=== PATIENT | male | born 1940 | race Caucasian/White ===

== ENCOUNTER 2020-04-29 13:30 | Outpatient (CLI) | payer MEDICARE, SELFPAY ==
--- NOTE | 2020-04-29 14:35 | XR_ITS ---
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 FINDINGS: The L1-L4 bone mineral density measures 0.907. This corresponds to a T score score of -2.8 and Z scor e of -1.7. Left femoral neck bone mineral density measures 0.662. This corresponds to a T score of -3.1 and Z sc ore of -1.8. XR/XR DEXA axial skeleton* [id number] IMPRESSION: Osteoporosis Patient's FRAX calculated 10 year probability for major osteoporotic fracture i s 17.0 % and osteoporotic hip fracture is 7.9%.
== END 2020-04-29 13:31 | disposition home or self-care (01) ==
PROVIDERS: PCP Nurse Practitioner; Visit Provider Nurse Practitioner
DX: M81.0 Age-related osteoporosis without current pathological fracture (principal)
CPT/HCPCS: 77080

== ENCOUNTER → 2023-04-10 14:34 | Outpatient (BNVA) | payer MEDICARE, SELFPAY | PROVIDERS: PCP Family Medicine; Visit Provider Otolaryngology | DX: H61.23 Impacted cerumen, bilateral (principal) | CPT/HCPCS: 69210; 99202 ==

== ENCOUNTER 2023-04-20 12:42 | Outpatient (CLI) | payer MEDICARE, SELFPAY ==
--- NOTE | 2023-04-20 14:16 | XR_ITS ---
WS: [id number] SCREENING DEXA SCAN [place] CLINICAL INFORMATION: AGE RELATED OSTEOPOROSIS W/O CURRENT PATHOLOGICAL FX COMPARISON: 2019 FINDINGS: The L1-L4 bone mineral density measures 0.939 g/cm2. This corresponds to a T score score of -2.3 and Z score of -1.4. Left forearm bone mineral density measures 0.831. This corresponds to a T score of -1.6 and Z score o f -0.4. XR/XR DEXA axial skeleton* [id number] IMPRESSION: Osteopenia lumbar spine. Osteopenia LEFT forearm. Bone mineral density lumbar spine increased 3.6% since 2019 LEFT forearm was not previously measured.
== END 2023-04-20 12:43 | disposition home or self-care (01) ==
PROVIDERS: PCP Family Medicine; Visit Provider Family Medicine
DX: M81.0 Age-related osteoporosis without current pathological fracture (principal); M85.88 Other specified disorders of bone density and structure, other site; M85.832 Other specified disorders of bone density and structure, left forearm
CPT/HCPCS: 77080

== ENCOUNTER 2025-07-23 10:48 | Observation (INO) | payer MEDICARE, SELFPAY ==
--- OUTSIDE RECORDS SUMMARY | 2025-07-22 09:20 | XMS_ITS | Encounter Summary ---
Author Organization [facility] Address [address] [place] [address] Care Team Providers Care Perinatal Technician Name Role Phone Adalberto Quinones MD Primary Care Provider [phone] Reason for Visit * Reason Comments Annual Wellness Visit (Medicare) Encounter Details Date Type Department Care Team (Late st Contact Info) Description 07/22/2025 9:20 AM CDT Office Visit [address] [phone] Annie Cleaning FNP [address] [address] Encounter for subsequent annual wellness visit (AWV) in Medicare patient (Primary Dx); ACP (advance care planning); Refused influenza vaccine; Blood loss anemia Social History Tobacco Use Types Packs/Day Years Used Date Smoking Tobacco: Never Smokeless Tobacco: Never Alcohol Use Standard Drinks/Week Comments Never 0 (1 standard drink = 0.6 oz pur e alcohol) Sex and Gender Information Value Date Recorded Sex Assigned at Not on file Legal Sex 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 Gender Identity Not on file Sexual Orientation Not on file documented as of this encounter Last Filed Vital Signs Vital Sign Reading Time Taken Comments Blood Pressure 128/80 07/22/2025 9:21 AM CDT Pulse 67 07/22/2025 9:21 AM CDT Temperature 36.1 C (97 F) 07/22/2025 9:21 AM CDT Respiratory Rate 16 07/22/2025 9:21 AM CDT Oxygen Saturation 99% 07/22/2025 9:21 AM CDT Inhaled Oxygen Concentration - - Weight 71.4 kg (157 lb 6.4 oz) 07/22/2025 9:21 A M CDT Height 172.7 cm (5' 8 ) 07/22/2025 9:21 AM CDT Body Mass Index 23.93 07/22/2025 9:21 AM CDT documented in this encounter Patient Instructions * Attachments The following attachments cannot be sent through Care Everywhere. * Advance Care Planning (Khmer) documented in this encounter Progress Notes * Annie Cleaning FNP - 07/22/2025 9:25 AM CDT Jaime Stout is a 85 y.o. male here today for his Medicare Annual Wellness Visit. MEDICARE WELLNESS VISIT HEALTH RISK ASSESSMENT Completed by and reviewed with patient/caregiver. See Annual Wellness Visit HRA Flowsheet In general, how would you rate your health?: Good (07/22/[address]) Are you basically satisfied with your life? : Yes (07/22/25931) MEDICAL RECORD REVIEWED AND UPDATED, INCLUDING: Demographics Current providers and suppliers: Patient Care Team: Adalberto Quinones MD as PCP - General (Family Practice) Ivelisse Castro FNP as PCP - Primary Care APP1 (Nurse Practitioner Family) Past Medical and Surgical History Family History Social History Allergies CURRENT MEDICATIONS REVIEWED AND RECONCILED metoprolol tartrate Take 1/2 (one-half) tablet by mouth twice daily (Patient taking differently: Take 12.5 mg by mouth 2 times daily. Taking 1/2 tab daily) aspirin Take 81 mg by mouth daily. CALCIUM CARBONATE-VITAMIN D3 ORAL Take by mouth. [DISCONTINUED] calcium carb,gluc/mag ox,gluc (CALCIUM MAGNESIUM ORAL) Take by mouth. In general, how often do you forget or decide not to take one or more of your medications?: Never (07/22/25931) EXAMINATION(MA may complete) BP 128/80 Pulse 67 Temp 97 ??F (36.1 ??C) (Temporal) Resp 16 Ht 5' 8 (1.727 m) Wt 71.4 kg (157 lb 6.4 oz) SpO2 99% BMI 23.93 kg/m?? Visual Acuity: Hearing: Have you been told by others you turn up your TV volume too high or that you have problems hearing?: Yes (07/22/25931) FUNCTIONAL ABILITY, FRAILTY Have you fallen one or more times in the past year?: No (07/22/25931) Patient denies needing help with any ADL's. Do you currently use any medical equipment, such as a cane, walker, wheelchair, or oxygen tank?: No(07/22/25931) SAFETY AND PHYSICAL ACTIVITY Do you fasten your seat belt when you are in the car?: Yes (07/22/25931) Do you feel safe at home?: Yes (07/22/25931) How many days a week do you do at least 10 - 15 minutes of some type of exercise or physical activity?: 4 or more days (07/22/25931) RISK ASSESSMENT (QM) Depression Screen Positive: PHQ-2 score >= 3 or PHQ-9 score >= 9 PHQ-2 Total: 0 (07/22/2025 9:32 AM) PHQ-9 Total: 2 (07/22/2025 9:32 AM) DEPRESSION PLAN OF CARE His depression screen was negative. (PHQ2 <3, PHQ9 <10, [place] <11) How often do you feel angry? : Sometimes (07/22/25931) How often do you feel lonely?: Never (07/22/25931) Any changes or new problems with your mental or emotional health, such as stress or anxiety?: No (07/22/25931) Opioid Use Current Opioids: none on current medication list Cognitive Impairment Cognitive ability observed and assessed throughout the exam. Structured assessment: not indicated based on this assessment. . PREVENTIVE CARE GUIDELINES Written Screening Schedule for the next 5-10 years developed and provided to patient. Preventive Care Recommendations for AVERAGE Risk Adult Males > 65yo Measure USPSTF Recommendation PSA testing Men 55-69: individual decision based on review of potential benefits and harms. Men >70 not recommended Colon Cancer Screening Colonoscopy every 10 yrs or Fecal Occult Blood testing yearly ages 45-75 Abdominal Aortic Aneurysm Men 65 -75 who have ever smoked. Lung Cancer Screening Annual low-dose CT, adults 50 - 80 w/ >20 pack-year smoking hx who currently smoke or have quit w/in 15 yrs (*Medicare will not cover for >77 yo) Lipid Screening Identification of dyslipidemia and calculation of 10-year CVD event risk requires universal lipid screening in adults ages 40 - 75 Pre-diabetes/Diabetes Screening Adults 35-70 who are overweight or obese Hepatitis C Screening Adults 18-79 Immunizations COVID-19 Influenza - Declined Pneumococcal - UTD RSV - Declined Tdap/Td - Declined Zoster (Shingles) - Declined ADVANCE CARE PLANNING Do you have an Advance Directive (Living Will)?: No (07/22/25931) Advance Care Planning Primary Emergency Contact: Bev Stout, Relation: Spouse Is the person(s) listed above who you would want to be your trusted decision maker? Yes Have you discussed your healthcare wishes with them? yes CODE STATUS Code Status: Full Code Code status was addressed and ordered as FULL CODE Discussed 07/22/2025 with patient. Participation was voluntary, and the nature of Advance Directives was part of the discussion. Next steps : Revisit this discussion if there is a new diagnosis, decline in functional abilities, or hospitalization YUE Gorman Number of minutes spent performing Advance Care Planning : <16 RISK FACTORS AND CONDITIONS FOR WHICH INTERVENTIONS ARE RECOMMENDED AND/OR UNDERWAY Cardiovascular Risk Assessment Cardiovascular risk assessment performed due to predisposing cardiovascular risk factors including advanced age (older than 55 for men, 65 for women), hypertension, male gender, and sedentary lifestyle The ASCVD Risk score (Desiree MELENDEZ, et al., 2019) failed to calculate for the following reasons: The 2019 ASCVD risk score is only valid for ages 40 to 79 Risk score cannot be calculated because patient has a medical history suggesting prior/existing ASCVD Patient counseled regarding his risk and appropriate management interventions. Time Spent <5 minutes. Are you currently on any kind of special diet? : No (07/22/25931) Do you have problems with your teeth or dentures?: Yes (07/22/25931) During the past 4 weeks, would you say you have had...: Very mild pain (07/22/25931) Do you have any concerns about your sexual health?: No (07/22/25931) No new issues identified EDUCATION/COUNSELING/REFERRAL(S) ACP documentation provided for return after completion with decision makers Orders Placed This Encounter POC HEMOGLOBIN Mr. Stout voiced understanding and agreement with the treatment plan. All questions were answered. Tqqjt-[id number]-[id number] provided to patient. ACUTE AND/OR CHRONIC ISSUES REQUIRING EVALUATION AND MANAGEMENT OUTSIDE THE WELLNESS VISIT (Provider only) 1. Encounter for subsequent annual wellness visit (AWV) in Medicare patient (Primary) - FULL CODE 2. Refused influenza vaccine 3. Blood loss anemia Want recheck since mild anemia acquired in the spring with regular blood donation which he paused - POC HEMOGLOBIN 4. ACP (advance care planning) - FULL CODE documented in this encounter Plan of Treatment Not on file documented as of this encounter Procedures Procedure Name Priority Date/Time Associated Diagnosis Comments POC HEMOGLOBIN Routine 07/22/2025 10:09 AM CDT Blood loss anemia documented in this encounter Results * (ABNORMAL) POC HEMOGLOBIN (07/22/2025 10:09 AM CDT) HEMOGLOBIN POC 13.4(A) 14.0 - 18.0 g/dl [facility] INTERNAL KIT QC POC Pass Pass [facility] KIT LOT NUMBER POC [id number] [facility] KIT EXP DATE POC 01-27-2026 [facility] Blood, capillary 07/22/2025 10:09 AM CDT us Annie TURNER POINT OF CARE TESTING Final Re sult [facility] CLIA# [id number] [address] [place] [id number] documented in this encounter Visit Diagnoses Diagnosis Encounter for subsequent annual wellness visit (AWV) in Medicare patient- Primary ACP (advance care planning) Other specified counseling Refused influenza vaccine Vaccination not carried out because of patient refusal Blood loss anemia Iron deficiency anemia secondary to blood loss (chronic) documented in this encounter Care Teams Perinatal Technician Relationship Specialty Start Date End Date Adalberto Quinones MD [address] [phone] PCP - General Family Practice 09/07/23 documented as of this encounter
[2025-07-23] VITALS (9 sets, daily range): BP systolic 111–161; BP diastolic 63–92; PULSE 55–60; RESP 9–18; TEMP 36.4–36.8; O2SAT 96–99
--- NOTE | 2025-07-23 10:55 | ECG_ITS ---
[employer] Test Date: 2025-07-23 Pat Name: Jaime Stout Department: Room: Gender: Male Psychiatric Clinician: : 1940 Requested By: Raymundo Montez Order Number: [id number] Humberto MD: Dipak Duron M.D. Measurements Intervals [place] Rate: 59 P: 47 ME: 182 QRS: 52 QRSD: 82 T: 50 QT: 402 QTc: 399 Interpretive Statements SINUS BRADYCARDIA SEPTAL MYOCARDIAL INFARCTION , OF INDETERMINATE AGE [40+ ms Q WAVE IN V1/V2] INTERPRETATION BASED ON A DEFAULT AGE OF 40 YEARS No previous ECG available for comparison Electronically Signed On 07-25-2025 20:43:25 CDT by Dipak Duron M.D. [email or web address]
--- NOTE | 2025-07-23 10:57 | XR_ITS ---
WS: [id number] Exam: XR chest 1V portable [id number] Date/Time of Exam: 07/23/2025 10:57 AM Reason For Exam: chest pain No priors. Lungs are clear and fully inflated. Normal cardiomediastinal silhouette. No pleural effusions. Unremarkable bony structures. XR/XR chest 1V portable [id number] IMPRESSION: 1. Negative chest.
--- NOTE | 2025-07-23 11:04 | W.ED.CHESTPA ---
HPI - Chest Pain General: Chief Complaint: Chest Pain Stated Complaint: CP Back Pain Time Seen by Provider: 07/23/25 11:01 History of Present Illness: 85-year-old male with history of hypertension and coronary artery disease status post stents several years back who presents to the emergency room with chest discomfort. He said last night he had a central chest pain that radiated into his back. Started as a discomfort and then became a pressure. This morning it is quite a bit better. No cough. No fevers. No nausea or vomiting. No abdominal pain. No altered mental status. No focal motor deficits. Related Data Home Medications ?Medication ?Instructions ?Recorded ?Confirmed metoprolol succinate 50 mg 50 mg PO DAILY 04/10/23 04/10/23 tablet,extended release 24 hr Allergies Allergy/AdvReac Type Severity Reaction Status Date / Time No Known Allergies Allergy Verified 07/23/25 10:59 Review of Systems Narrative: Constitutional symptoms: Negative except as documented in HPI. Skin symptoms: Negative except as documented in HPI. Eye symptoms: Negative except as documented in HPI. ENMT symptoms: Negative except as documented in HPI. Respiratory symptoms: Negative except as documented in HPI. Cardiovascular symptoms: Negative except as documented in HPI. Gastrointestinal symptoms: Negative except as documented in HPI. Genitourinary symptoms: Negative except as documented in HPI. Musculoskeletal symptoms: Negative except as documented in HPI. Neurologic symptoms: Negative except as documented in HPI. Psychiatric symptoms: Negative except as documented in HPI. Endocrine symptoms: Negative except as documented in HPI. PFS ED PFSH: Medical History (Updated 07/23/25 @ 12:38 by Jie Rouse MD) Hypertension Hx of fracture of hip High cholesterol Surgical History (Updated 07/23/25 @ 12:38 by Jie Rouse MD) Hx of heart artery stent Social History Smoking and tobacco/nicotine status: never used tobacco/nicotine Physical Exam Narrative: EXAM NARRATIVE: General: Alert, no acute distress. Skin: Warm, dry. Head: Normocephalic, atraumatic. Neck: Supple, trachea midline. Eye: Extraocular movements are intact. Ears, nose, mouth and throat: mucosa moist. Cardiovascular: Regular, Normal peripheral perfusion. Respiratory: Lungs are clear to auscultation, respirations are non-labored, breath sounds are equal, Symmetrical chest wall expansion. Gastrointestinal: Soft, Nontender, Non distended Musculoskeletal: Normal ROM, no deformity. Neurological: Alert and oriented, No focal neurological deficit observed. Psychiatric: Cooperative, appropriate mood & affect. Course Vital Signs: Vital signs: Vital Signs Temperature 97.6 F 07/23/25 10:50 Pulse Rate 59 L 07/23/25 11:33 Blood Pressure 142/74 07/23/25 11:33 Pulse Oximetry 99 07/23/25 11:33 Oxygen Delivery Me thod Room Air 07/23/25 11:33 MDM - Chest Pain Medical Decision Making Medical decision making: Patient's reason for coming to the emergency room: Chest discomfort Social determinants: Retired I reviewed the patient's medical record. 85-year-old male with a history of hypertension and coronary artery disease status post stents. Only previous visit here was to ENT for hearing loss in 2022 I reviewed the patient's current home meds Patient says he is currently only on metoprolol and records reflect this. Alternate historians: None Differential diagnosis for patient with chest pain includes but is not limited to and based on the above HPI, review of systems and physical exam: Pneumonia. unstable angina. angina. Acute coronary syndrome / [place]. Pulmonary embolism. Costochondritis / musculoskeletal. Pleurisy. Pericarditis. Esophageal spasm. Pancreatis. Cholecystitis. Orders placed to evaluate differential diagnosis based on the above differential, HPI and physical exam EKG: Time 10:55 AM. Rate 59. Sinus bradycardia, nonspecific ST changes, no ectopy, normal NM & QRS intervals, This was reviewed and interpreted by myself the ER physician at 11:01 AM Chest x-ray: No acute process. No infiltrate. No pneumothorax. This was reviewed and interpreted by myself the emergency room physician. I also reviewed the radiology report. Lab Review: Laboratory results were reviewed and interpreted by myself the emergency room physician. No leukocytosis. No anemia. Assessment of risk: Level of risk: Moderate. Patient does have a cardiac history and is having chest pain. Elderly. Minimal other comorbidities though Hospitalization considerations: Patient is being placed in observation for continued cardiac workup and possible stress test. Clinical decision support: Heart score was a 6 to 7. Recommend admission. Reexamination: Patient remained stable. No increased work of breathing. No altered mental status. No focal motor deficits. Currently with no chest pain Consultation: I spoke with Dr. Forrest who is on-call for the hospitalist service who agrees to admission and is seeing the patient here in the emergency room. Assessment and plan: Chest pain Coronary artery disease History of cardiac stents ?Aspirin in the emergency room -I discussed the patient with the hospitalist on-call who is admitting the patient. - Discussed findings and plan with patient. Answered any questions. - All laboratory values were reviewed and interpreted personally by myself, the ER physician - All imaging was reviewed and interpreted personally by myself, the ER physician. - Evaluation and treatment of this problem were appropriate in the emergency setting Lab Data 07/23/25 11:24 07/23/25 11:24 Radiology Impressions Chest X-Ray 07/23/25 10:57 IMPRESSION: 1. Negative chest. Laboratory Results WBC 7.02 10^3/uL (3.29-11.43) 07/23/25 11:24 RBC 5.73 10^6/uL (3.85-5.65) H 07/23/25 11:24 Hgb 13.80 g/dL (11.27-16.99) 07/23/25 11:24 Hct 44.2 % (37-53) 07/23/25 11:24 MCV 77.1 fl (82-101) L 07/23/25 11:24 MCH 24.1 pg (27-33) L 07/23/25 11:24 MCHC 31.2 g/dL (30-55) 07/23/25 11:24 RDW 17.1 % (12.1-15.1) H 07/23/25 11:24 Plt Count 205 10^3/cmm (157-399) 07/23/25 11:24 MPV 9.8 fL (7.4-10.4) 07/23/25 11:24 Neut % (Auto) 71.2 % 07/23/25 11:24 Lymph % (Auto) 17.4 % 07/23/25 11:24 [place] % (Auto) 9.4 % 07/23/25 11:24 Eos % (Auto) 1.1 % 07/23/25 11:24 Baso % (Auto) 0.6 % 07/23/25 11:24 Neut # (Auto) 5.00 10^3/uL (1.8-7.7) 07/23/25 11:24 Lymph # (Auto) 1.2 10^3/uL (0.8-4.8) 07/23/25 11:24 [place] # (Auto) 0.7 10^3/uL (0.2-0.9) 07/23/25 11:24 Eos # (Auto) 0.1 10^3/uL (0.0-0.8) 07/23/25 11:24 Baso # (Auto) 0.0 10^3/uL (0.0-0.1) 07/23/25 11:24 Nucleated RBC % (auto) 0 % 07/23/25 11:24 Nucleated RBCs # 0.0 /100WBC 07/23/25 11:24 Sodium 138 mmol/L (136-145) 07/23/25 11:24 Potassium 4.1 mmol/L (3.5-5.1) 07/23/25 11:24 Chloride 101 mmol/L (98-107) 07/23/25 11:24 Carbon Dioxide 25 mmol/L (22-29) 07/23/25 11:24 Anion Gap 16.1 (5-19) 07/23/25 11:24 BUN 15 mg/dL (8-23) 07/23/25 11:24 Creatinine 0.8 mg/dL (0.7-1.2) 07/23/25 11:24 GFR Calculation Not Reportable 07/23/25 11:24 Glucose 88 mg/dL (65-115) 07/23/25 11:24 Calculated Osmolality 286 mOsm/kg (285-295) 07/23/25 11:24 Calcium 9.2 mg/dL (8.5-10.5) 07/23/25 11:24 Total Bilirubin 0.8 mg/dL (0.15-1.2) 07/23/25 11:24 AST 15 U/L (0-40) 07/23/25 11:24 ALT 10 U/L (0-41) 07/23/25 11:24 Alkaline Phosphatase 78 U/L (40-130) 07/23/25 11:24 Troponin T Baseline < 6 ng/L (0-15) 07/23/25 11:24 Total Protein 7.1 g/dL (6.6-8.7) 07/23/25 11:24 Albumin 4.5 g/dL (3.5-5.2) 07/23/25 11:24 Globulin 2.6 g/dL (1.3-4.6) 07/23/25 11:24 All radiology interpretation(s) finalized by discharge Clincial Decision Support The following clinical decision support tools were used to aid in care of the patient HEART Score -> History: Highly Suspicious, EKG: Non-specific Changes, Age: 65 or more yrs, Risk Factors: >/=3 Risk Factors, Troponin: Baseline Trop <16 ng/L. Resulting HEART Score: 7. Discharge Plan Discharge Patient Disposition: Placed in Observation Clinical Impression: Chest pain, Coronary artery disease, History of heart artery stent Coding Level of Care Code ED Boot Trimmer for g Fwd Heart Score HEART Score Components History: Highly Suspicious EKG: Non-specific Changes Age: 65 or more yrs Risk Factors: >/=3 Risk Factors Troponin: Baseline Trop <16 ng/L HEART Score RESULT HEART Score: 7
--- OUTSIDE RECORDS SUMMARY | 2025-07-23 11:30 | XMS_ITS | Encounter Summary ---
Author Organization [facility] Address [address] [place] [address] Care Team Providers Care Insurance Actuary Name Role Phone Adalberto Quinones MD Primary Care Provider [phone] Encounter Details Date Type Department Care Team (Late st Contact Info) Description 07/22/2025 Results Follow-Up [facility] [place] [address] [phone] Annie Cleaning FNP [address] [phone] POC HEMOGLOBIN Social History Tobacco Use Types Packs/Day Years Used Date Smoking Tobacco: Never Smokeless Tobacco: Never Alcohol Use Standard Drinks/Week Comments Never 0 (1 standard drink = 0.6 oz pur e alcohol) Sex and Gender Information Value Date Recorded Sex Assigned at Not on file 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 Voiced understanding. [facility] * Telephone Encounter - Payton Mackay LPN - 07/22/2025 11:51 AM CDT ----- Message from Annie Cleaning sent at 07/22/2025 11:33 AM CDT ----- Please let pt know iron is improved from 11.1 to 13.4 ----- Message ----- From: Tayla Corral LPN Sent: 07/22/2025 10:10 AM CDT To: YUE Gorman * Result Encounter Note - Annie Cleaning FNP - 07/22/2025 11:33 AM CDT Please let pt know iron is improved from 11.1 to 13.4 documented in this encounter Plan of Treatment Not on file documented as of this encounter Visit Diagnoses Not on filedocumented in this encounter Care Teams Insurance Actuary Relationship Specialty Start Date End Date Adalberto Quinones MD [address] [place] [phone] PCP - General Family Practice 09/07/23 documented as of this encounter
--- OUTSIDE RECORDS SUMMARY | 2025-07-23 11:30 | XMS_ITS | Clinical Summary ---
Author Organization [facility] Address [address] [address] Care Team Providers Care Lpn Medical Assistant Name Role Phone Adalberto Quinones MD Primary Care Provider [phone] Allergies No known active allergies Medications aspirin (ECOTRIN EC) 81 mg Tablet, Delayed Release (E.C.) Take 81 mg by mouth daily. Active CALCIUM CARBONATE-VITAMI N D3 ORAL Take by mouth. Activ e metoprolol tartrate (LOPRESSOR) 25 mg tabletIndication s:History of AR (myocardial infarction),Prim hayden hypertension Take 1/2 (one-half) tablet by mouth twice daily 100 Tablet 3 08/05/20 24 Active Additional Information Patient taking differently:12.5 mg Oral TWO TIMES DAILY,Taking 1/2 tab daily, Reported on 07/22/2025 calcium carb,gluc/mag ox,gluc (CALCIUM MAGNESIUM ORAL) Take by mouth. 07/22 025 Discontin ued(Patie nt choice) Active Problems Problem Noted Date Diagnosed Date History of AR (myocardial infarction) 01/19/2025 Primary hypertension 02/25/2024 AK (actinic keratosis) 02/25/2024 Spider varicose vein 02/25/2024 Encounters Date Type Department Care Team Description 07/23/2025 Telephone [facility] [address] [address] Adalberto Quinones MD Patient Communication 07/22/2025 9:20 AM CDT Office Visit [facility] [address] [address] Annie Cleaning FNP Encounter for subsequent annual wellness visit (AWV) in Medicare patient (Primary Dx); ACP (advance care planning); Refused influenza vaccine; Blood loss anemia 07/22/2025 Results Follow-Up [address] [address] Annie Cleaning FNP POC HEMOGLOBIN 07/15/2025 External Device Data STL ABSTRACTION Provider, Abstract 05/12/2025 External Device Data STL ABSTRACTION Provider, Abstract from Last 3 Months Social History Tobacco Use Types Packs/Day Years Used Date Smoking Tobacco: Never Smokeless Tobacco: Never Tobacco Cessation:Counseling Given: Not Answered Alcohol Use Standard Drinks/Week Comments Never 0 (1 standard drink = 0.6 oz pur e alcohol) Sex and Gender Information Value Date Recorded Sex Assigned at Not on file 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 Gender Identity Not on file Sexual Orientation Not on file Last Filed Vital Signs Vital Sign Reading [...] Mass Index 23.93 07/22/2025 9:21 AM CDT Plan of Treatment Health Maintenance Due Date Last Done Comments DTAP/TDAP/TD VACCINES (1 - Tdap) 1961 ZOSTER VACCINE (1 of 2) 1992 RSV VACCINE (60+ or ) (1 - 1-dose 75+ series) 2017 INFLUENZA VACCINE (#1) 2025 PNEUMOCOCCAL VACCINE 50+ YEARS Completed 04/04/2023 Medicare Advantage ([place]) Prev entative Visit/Annual Wellness Visit Completed 07/22/2025 Procedures Procedure Name Priority Date/Time Associated Diagnosis Comments POC HEMOGLOBIN Routine 07/22/2025 10:09 AM CDT Blood loss anemia from Last 3 Months Results * (ABNORMAL) POC HEMOGLOBIN (07/22/2025 10:09 AM CDT) HEMOGLOBIN POC 13.4(A) 14.0 - 18.0 g/dl [facility] INTERNAL KIT QC POC Pass Pass [facility] KIT LOT NUMBER POC [id number] [facility] KIT EXP DATE POC 01-27-2026 [facility] Blood, capillary 07/22/2025 10:09 AM CDT us Annie Cleaning SCIENCE LIAISON POINT OF CARE TESTING Final Re sult Performing Organization Address City/State/[facility] Co de Phone Number [facility] CLIA# [id number] [address] [address] from Last [address] [place] [address] [id number] Advance Directives For more information, please contact: [phone] * Full Code (Latest Code Status on File) Date Activated Date Inactivated Comments 07/22/2025 10:07 AM Care Teams Lpn Medical Assistant Relationship Specialty Start Date End Date Adalberto Quinones MD [address] [address] PCP - General Family Practice 09/07/23
--- OUTSIDE RECORDS SUMMARY | 2025-07-23 11:30 | XMS_ITS | Encounter Summary ---
Author Organization [facility] Address [address] [place] [address] Care Team Providers Care Netezza Architect Name Role Phone Adalberto Quinones MD Primary Care Provider [phone] Reason for Visit * Reason Comments Patient Communication Encounter Details Date Type Department Care Team (Late st Contact Info) Description 07/23/2025 Telephone [facility] Medicine Reading [address] [address] Adalberto Quinones MD [address] [address] Patient Communication Social History Tobacco Use Types Packs/Day Years Used Date Smoking Tobacco: Never Smokeless Tobacco: Never Alcohol Use Standard Drinks/Week Comments Never 0 (1 standard drink = 0.6 oz pur e alcohol) Sex and Gender Information Value Date Recorded Sex Assigned at Not on file 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 Looked into patients chart and found the message about getting a EKG askedpatient what his symptoms were and how long this had been happening. Patient stated that after he was seen in the clinic on 07/22 he went home and that night started having chest pain that worsened through the night. Patient woke up this morning and was still experiencing chest pain. BP was also inthe 160s on home BP machine. This is when patient made his call into the clinic(first note). Patient then came into the clinic around 10AM and asked why he had not heard anything back yet. Spoke brief ly with Dr Yip as pts PCP was not here today and he suggested patient to to nearest ER to be evaluated. Informed patient of this and patients said she will drive him there. * Telephone Encounter - Gina Saldana - 07/23/2025 8:05 AM CDT Copied from [facility] #[id number]. Topic: CPA Information Request >> Jul 23, 2025 8:05 AM Gina Noel wrote: Caller is returning phone call from clinic. Caller Name: Patient Patient/Caregiver Callback Number: [phone] Patient Has Additional Questions Are the credentials of the caregiver who talked to the patient interdisciplinary professor? No Call Notes: Patient/Caller requires a call back to discuss possible getting a EKG test documented in this encounter Plan of Treatment Not on file documented as of this encounter Visit Diagnoses Not on filedocumented in this encounter Care Teams Netezza Architect Relationship Specialty Start Date End Date Adalberto Quinones MD [address] [place] [phone] PCP - General Family Practice 09/07/23 documented as of this encounter
--- OUTSIDE RECORDS SUMMARY | 2025-07-23 11:30 | XMS_ITS | Encounter Summary ---
Author Organization [facility] Address [address] [place] [address] Care Team Providers Care Manager Environmental Affairs Name Role Phone Adalberto Quinones MD Primary Care Provider [phone] Encounter Details Date Type Department Care Team (Late st Contact Info) Description 07/15/2025 External Device Data STL ABSTRACTION Provider, Abstract NO ADDRESS ON FILE Social History Tobacco Use Types Packs/Day Years Used Date Smoking Tobacco: Never Smokeless Tobacco: Never Alcohol Use Standard Drinks/Week Comments Never 0 (1 standard drink = 0.6 oz pur e alcohol) Sex and Gender Information Value Date Recorded Sex Assigned at Not on file 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
[2025-07-23 11:35] LABS: Hematocrit 44.2 % (37-53); Hemoglobin 13.80 g/dL (11.27-16.99); Mean Corpuscular HGB Conc 31.2 g/dL (30-55); Mean Corpuscular Hemoglobin 24.1 pg (27-33); Mean Corpuscular Volume 77.1 fl (82-101); Nucleated Red Blood Cells % 0 %; Platelet Count 205 10^3/cmm (157-399); Red Blood Count 5.73 10^6/uL (3.85-5.65); White Blood Count 7.02 10^3/uL (3.29-11.43)
[2025-07-23 11:57] LABS: Troponin(5th) Baseline < 6 ng/L (0-15)
[2025-07-23 12:01] LABS: Alanine Aminotransferase 10 U/L (0-41); Albumin Level 4.5 g/dL (3.5-5.2); Alkaline Phosphatase 78 U/L (40-130); Anion Gap 16.1 (5-19); Aspartate Amino Transferase 15 U/L (0-40); Blood Urea Nitrogen 15 mg/dL (8-23); Calcium 9.2 mg/dL (8.5-10.5); Carbon Dioxide 25 mmol/L (22-29); Chloride 101 mmol/L (98-107); Creatinine Clr Calc Pharmacy 68.4424; Globulin 2.6 g/dL (1.3-4.6); Glucose 88 mg/dL (65-115); Osmolality Calculated 286 mOsm/kg (285-295); Potassium 4.1 mmol/L (3.5-5.1); Sodium 138 mmol/L (136-145); Total Protein 7.1 g/dL (6.6-8.7)
--- NOTE | 2025-07-23 12:55 | USCV_ITS ---
Jaime Stout Age: 85 Gender: M : 1940 Exam Date: 07/23/2025 15:40 Ordering Phys: Nelson Forrest MD Technologist: KERI [place]am [place] [facility] [place] Indication: SoB BP: 142 / 74 HR: 61 Rhythm: Sinus Technical Quality: Adequate MEASUREMENTS (Male / Female) Normal Values 2D ECHO LV Diastolic Diameter PLAX 4.1 cm 4.2 - 5.9 / 3.9 - 5.3 cm IVS Diastolic Thickness 0.9 cm 0.6 - 1.0 / 0.6 - 0.9 cm IVS Systolic Thickness 1.3 cm LVPW Diastolic Thickness 1.1 cm 0.6 - 1.0 / 0.6 - 0.9 cm LVPW Systolic Thickness 1.3 cm LVOT Diameter 2.0 cm LV Ejection Fraction 2D Teich 49.9 % LV Ejection Fraction MOD 4C 58.8 % LV Ejection Fraction MOD 2C 66.7 % LV Ejection Fraction 2C AL 69.4 % LA Diameter 3.1 cm RA Systolic Volume 4C AL 33.8 ml RA Systolic Volume 4C MOD 32.2 ml LA Sys Volume AL 23.1 cm cubed LA Sys Volume Index AL 12.6 cm cubed/m squared Aorta at Sinotubular Diameter 2.6 cm DOPPLER AV Peak Velocity 127.0 cm/s LVOT Peak Velocity 84.0 cm/s AV Area Cont Eq vti 2.7 cm squared AV Area Cont Eq pk 2.2 cm squared MV Peak Velocity 83.0 cm/s MV Area PHT 3.9 cm squared Mitral E to A Ratio 0.9 TV Peak Velocity 148.0 cm/s TR Peak Velocity 234.0 cm/s TR Peak Gradient 21.9 mmHg TV Peak E Velocity 59.0 cm/s PV Peak Velocity 81.0 cm/s FINDINGS Left Ventricle Normal left ventricular size, systolic function and wall thickness with no regional wall motion abnormality. Left ventricular ejection fraction is 58%. Normal left ventricular diastolic function. Right Ventricle Normal right ventricular size and systolic function. Right Atrium Normal right atrial size. Left Atrium Normal left atrial size. IA Septum Normal appearance of the interatrial septum. Mitral Valve Normal mitral valve structure. No mitral valve stenosis or regurgitation. Aortic Valve Mild aortic valve calcification without stenosis. Mild aortic valve regurgitation. Tricuspid Valve Normal tricuspid valve structure. Trace tricuspid valve regurgitation. Normal pulmonary pressure. Pulmonic Valve Normal pulmonic valve structure. No pulmonic valve stenosis or regurgitation. Pericardium No pericardial effusion. Aorta Normal diameter of the aortic root and ascending thoracic aorta. IVC Normal IVC diameter. CONCLUSIONS Normal left ventricular size, systolic function and wall thickness with ejection fraction of 58%. Normal right ventricular size and systolic function. Mild aortic valve sclerosis without stenosis. Mild aortic valve regurgitation. Dipak Duron MD, FACC (Electronically Signed) Final Date: 24 July 2025 15:34 S
--- NOTE | 2025-07-23 12:57 | ECG_ITS ---
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 Measurements Intervals [place] Rate: 58 P: 43 [place]: 170 QRS: 16 QRSD: 89 T: 26 QT: 416 QTc: 410 Interpretive Statements SINUS BRADYCARDIA Compared to ECG 07/23/2025 10:55:12 Myocardial infarct finding no longer present Electronically Signed On 07-25-2025 21:18:42 CDT by Dipak Duron M.D. [id number]
--- NOTE | 2025-07-23 12:58 | PM.HP ---
Providers/Chief Complaint Primary Care Provider: Adalberto Quinones Chief Complaint: CP Back Pain History of Present Illness Jaime Stout is a 85 year old male with a past medical history of CAD status post cardiac stenting, who presents to [facility] for chest pain. Patient reports that he had substernal chest pain, left side of the chest, radiated to the right side of the chest, also radiated to the back, no nausea, no vomiting, does report shortness of breath, no lightheadedness, no dizziness, no fevers, no chills, currently denies active chest pain Review of Systems Const: Denies: fever(s) or chills Card: Reports: chest pain Resp: Denies: dyspnea Medications/Allergies Home Medications ?Medication ?Instructions ?Recorded ?Confirmed ?Last Taken ?Type aspirin 81 mg tablet,delayed 81 mg PO DAILY 07/23/25 07/23/25 07/23/25 08:00 History release ([place]iffin Low Dose Aspirin) calcium carbonate 500 mg PO DAILY 07/23/25 07/23/25 07/22/25 History cholecalciferol (vitamin D3) 50 50 mcg PO DAILY 07/23/25 07/23/25 07/23/25 08:00 History mcg (2,000 unit) capsule (Vitamin D3) magnesium 250 mg tablet 250 mg PO DAILY 07/23/25 07/23/25 07/22/25 History metoprolol tartrate 25 mg tablet 12.5 mg PO BID 07/23/25 07/23/25 07/23/25 08:00 History Allergies Allergy/AdvReac Type Severity Reaction Status Date / Time No Known Allergies Allergy Verified 07/23/25 10:59 PFSH Acute PFSH: Medical History Hypertension Hx of fracture of hip High cholesterol Surgical History Hx of heart artery stent Social History Smoking and tobacco/nicotine status: never used tobacco/nicotine Vitals/I&O/Wt Last Vital Signs Temp 97.6 F 07/23/25 10:50 Pulse 59 L 07/23/25 11:33 BP 142/74 07/23/25 11:33 Pulse Ox 99 07/23/25 11:33 O2 Del Method Room Air 07/23/25 11:33 Weight last 48 hrs Weight 70.307 kg Physical Exam Const: COMMON NORMALS: no acute distress and patient oriented x3 HENMT: COMMON NORMALS: normocephalic HEAD & SCALP: normocephalic Eye: COMMON NORMALS: Equal, round and reactive pupils present and EOMs intact bilaterally Resp: COMMON NORMALS: normal respiratory effort, No retractions, No use of accessory muscles and clear to auscultation bilaterally AUSCULTATION: clear to auscultation bilaterally Cardio: COMMON NORMALS: regular rate, regular rhythm, S1 normal heart sound present and S2 normal heart sound present RATE: regular rate RHYTHM: regular rhythm HEART SOUNDS: S1 normal heart sound present and S2 normal heart sound present GI: COMMON NORMALS: Normal to inspection, nondistended, normoactive bowel sounds present, Soft to palpation and non-tender Extremity: COMMON NORMALS: no calf tenderness and no pedal edema Neuro: COMMON NORMALS: patient oriented x3, CN's II-XII intact bilaterally and moves all extremities Psych: COMMON NORMALS: mental status grossly normal Data 07/23/25 11:24 07/23/25 11:24 A&P Assessment and plan 1. Chest pain: Plan: Chest pain - Serial EKGs, serial troponins, telemetry monitoring - Cardiac echo - Aspirin, statin, metoprolol - Cardiac stress test tomorrow morning - Full code - Lovenox for DVT prophylaxis PDMP PDMP Reviewed: Not Reviewed Attestations Medical Necessity Statement*: Patient requires hospitalization, outpatient with observation, with chest pain Diagnoses Chest pain R07.9
[2025-07-23 13:46] LABS: Troponin 5 2HR < 6.0 ng/L (0-15); Troponin 5 2HR Delta 0 ABS# (0-10)
[2025-07-23 13:59] LABS: NT Pro B Type Natriuretic Pept 39 pg/mL (0-450)
--- NOTE | 2025-07-23 14:06 | ECG_ITS ---
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 Interpretive Statements Procedure: A total of 0.4 mg of Lexiscan was infused over 20 seconds. The stress phase was continued for a total of 5 minutes. Sestamibi was injected 20 seconds after the Lexiscan infusion. Findings: The patient's resting blood pressure was 120/70 mmHg with a heart rate of 51 bpm. The resting EKG showed normal sinus rhythm with no ST-T wave abnormalities. After Lexiscan injection the heart rate gradually increased to a maximum of 91 bpm. The blood pressure decreased to 109/62 mmHg. At the end of recovery the patient's blood pressure was 119/60 with a heart rate of 63 bpm. The patient had no ST or T wave changes during the stress test. No arrhythmias occurred. Conclusion: 1. Normal EKG response to Lexiscan infusion 2. No Lexiscan induced chest pain or cardiac arrhythmia. 3. Normal blood pressure and heart rate response. 4. Nuclear myocardial perfusion scan pending; see separate report. Electronically Signed On 07-24-2025 15:37:20 CDT by Dipak Duron M.D. [email or web address] [id number]
[2025-07-23 14:47] LABS: Estmated Average Glucose 111; Hemoglobin A1C 5.5 % (4.0-6.0)
[2025-07-23] MEDS: pantoprazole 40 mg SDV IVP (14:49)
[2025-07-23 15:07] LABS: Cholesterol 259 mg/dL (0-200); HDL Cholesterol 48 mg/dL (60-100); Thyroid Stimulating Hormone 1.91 uIU/mL (0.27-4.20); Triglycerides 166 mg/dL (0-150)
--- NOTE | 2025-07-23 16:57 | ECG_ITS ---
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
[2025-07-23 18:05] LABS: Troponin 5 6HR < 6.0 ng/L (0-15); Troponin 5 6HR Delta 0 ng/L (0-12)
[2025-07-23 20:22] LABS: Glucose Urine UA Negative (Normal); Nitrate Urine Negative (Negative); Specific Gravity, Urine 1.009 (1.005-1.030)
[2025-07-23 20:27] LABS: Add Urine Microscopic? YES
[2025-07-24] VITALS: BP 105/59; PULSE 66; RESP 13; O2SAT 97
[2025-07-24 04:00] VITALS: BP 126/78; PULSE 75; RESP 22; TEMP 36.6; O2SAT 98
[2025-07-24 06:17] LABS: Hematocrit 39.6 % (37-53); Hemoglobin 12.50 g/dL (11.27-16.99); Mean Corpuscular HGB Conc 31.6 g/dL (30-55); Mean Corpuscular Hemoglobin 24.2 pg (27-33); Mean Corpuscular Volume 76.7 fl (82-101); Nucleated Red Blood Cells % 0 %; Platelet Count 186 10^3/cmm (157-399); Red Blood Count 5.16 10^6/uL (3.85-5.65); White Blood Count 4.52 10^3/uL (3.29-11.43)
[2025-07-24 06:35] LABS: Alanine Aminotransferase 7 U/L (0-41); Albumin Level 3.8 g/dL (3.5-5.2); Alkaline Phosphatase 59 U/L (40-130); Anion Gap 14.7 (5-19); Aspartate Amino Transferase 13 U/L (0-40); Blood Urea Nitrogen 18 mg/dL (8-23); Calcium 8.8 mg/dL (8.5-10.5); Carbon Dioxide 26 mmol/L (22-29); Chloride 106 mmol/L (98-107); Creatinine Clr Calc Pharmacy 60.6593; Globulin 2.4 g/dL (1.3-4.6); Glucose 98 mg/dL (65-115); Osmolality Calculated 296 mOsm/kg (285-295); Potassium 4.7 mmol/L (3.5-5.1); Sodium 142 mmol/L (136-145); Total Protein 6.2 g/dL (6.6-8.7)
[2025-07-24 07:37] VITALS: BP 127/69; PULSE 51; RESP 15; TEMP 36.3; O2SAT 100
[2025-07-24 07:54] VITALS: BP 121/62; PULSE 68
[2025-07-24 12:00] VITALS: BP 117/72; PULSE 63; RESP 19; TEMP 36.3; O2SAT 99
--- NOTE | 2025-07-24 13:24 | PC.NURSE ---
off unit to hemodialysis room
--- NOTE | 2025-07-24 14:06 | NMCV_ITS ---
NM rogelio perf SPECT r/s* [id number] Jaime Stout Age: 85 Gender: M : 1940 Exam Date: 07/24/2025 07:17 Ordering Phys: Nelson Forrest MD Technologist: MARGIE Gama Exam Location: [facility] Indications: cp STRESS TEST [facility] IMAGE PROTOCOL Rest/Stress 1 Lexiscan Day Radiopharmaceutical Dose (mCi) Administration Site Administered by Rest: Tc-99m 10.6 IV Taylor Wright, WINERY WORKER Sestamibi Stress:Tc-99m 32.7 IV Taylor Elliottgle, WINERY WORKER Sestamibi Rest: 24-Jul-2025 60 Discovery 630 Stress: 24-Jul-2025 30 Discovery 630 0.4mg Lexiscan. Images obtained in supine and prone position. SPECT RESULTS Technical Quality: Good Raw Data Analysis: Normal Image Corrections: No attenuation or motion correction applied Summed Stress Score: 0 Summed Rest Score: 0 Summed Difference Score: 0 PERFUSION FINDINGS SPECT images demonstrate homogeneous tracer distribution throughout the myocardium. FUNCTIONAL RESULTS (calculated via Gated SPECT) Stress Image LV EF (%): 79 Stress EDV (mL):67 TID: 0.79 Stress ESV (mL):14 FUNCTIONAL FINDINGS: There is normal left ventricular systolic function. IMPRESSIONS Myocardial perfusion imaging is normal. There is normal left ventricular systolic function, EF 79%. Dipak Duron MD, FACC (Electronically Signed) Final Date: 24 July 2025 14:52 S
--- NOTE | 2025-07-24 15:10 | P.DS_ITS ---
Discharge Providers Date of Admission: 07/23/25 13:57 Date of Discharge: July 24, 2025 Attending Provider at Admission: Nelson Forrest MD Attending Provider at Discharge: Nelson Forrest MD Primary Care Provider: Adalberto Quinones Diagnoses at Discharge Discharge Diagnosis 1. Chest pain: Reason for Visit Reason for Visit: CP Back Pain Hospital Course Hospital Course Jaime Stout is a 85 year old male with a past medical history of CAD status post cardiac stenting, who presents to [facility] for chest pain. Patient reports that he had substernal chest pain, left side of the chest, radiated to the right side of the chest, also radiated to the back, no nausea, no vomiting, does report shortness of breath, no lightheadedness, no dizziness, no fevers, no chills, currently denies active chest pain Patient was admitted to [facility] for chest pain -No significant delta troponin, no acute ST-T wave changes on EKG echo CONCLUSIONS Normal left ventricular size, systolic function and wall thickness with ejection fraction of 58%. Normal right ventricular size and systolic function. Mild aortic valve sclerosis without stenosis. Mild aortic valve regurgitation. -Stress testing IMPRESSIONS Myocardial perfusion imaging is normal. There is normal left ventricular systolic function, EF 79%. - No recurrent chest pain during hospitalization - Discharged on aspirin, statin, beta-trinh - If any chest pain please come back to the emergency room, follow-up cardiology Physical Exam Const: COMMON NORMALS: no acute distress and patient oriented x3 Resp: COMMON NORMALS: normal respiratory effort, No retractions, No use of accessory muscles and clear to auscultation bilaterally AUSCULTATION: clear to auscultation bilaterally Cardio: COMMON NORMALS: regular rate, regular rhythm, S1 normal heart sound present and S2 normal heart sound present RATE: regular rate RHYTHM: regular rhythm HEART SOUNDS: S1 normal heart sound present and S2 normal heart sound present GI: COMMON NORMALS: Normal to inspection, nondistended, normoactive bowel sounds present and non-tender Extremity: COMMON NORMALS: no pedal edema Neuro: COMMON NORMALS: patient oriented x3 Psych: COMMON NORMALS: mental status grossly normal Discharge Data Studies Completed and Pending Completed Studies During Hospitalization Category Date Time Status XR chest 1V portable [id number] Stat Exams 07/23/25 10:57 Completed NM rogelio perf SPECT r/s* [id number] Routine Nuc Med 07/24/25 14:06 Completed Pending at discharge Category Date Time Status Sestamibi Stress Test Request Routine Exams 07/23/25 14:06 Ordered Complete Blood Count w/Auto AM LABS Lab 07/25/25 04:00 Ordered Complete Blood Count w/Auto AM LABS Lab 07/26/25 04:00 Ordered Comprehensive Metabolic Panel AM LABS Lab 07/25/25 04:00 Ordered Comprehensive Metabolic Panel AM LABS Lab 07/26/25 04:00 Ordered CV. echo complete* [id number] Stat Ultrasound 07/23/25 12:55 Taken Radiology Impressions Chest X-Ray 07/23/25 10:57 IMPRESSION: 1. Negative chest. Laboratory Results WBC 4.52 10^3/uL (3.29-11.43) 07/24/25 05:37 RBC 5.16 10^6/uL (3.85-5.65) 07/24/25 05:37 Hgb 12.50 g/dL (11.27-16.99) 07/24/25 05:37 Hct 39.6 % (37-53) 07/24/25 05:37 MCV 76.7 fl (82-101) L 07/24/25 05:37 MCH 24.2 pg (27-33) L 07/24/25 05:37 MCHC 31.6 g/dL (30-55) 07/24/25 05:37 RDW 17.0 % (12.1-15.1) H 07/24/25 05:37 Plt Count 186 10^3/cmm (157-399) 07/24/25 05:37 MPV 10.3 fL (7.4-10.4) 07/24/25 05:37 Neut % (Auto) 57.6 % 07/24/25 05:37 Lymph % (Auto) 26.3 % 07/24/25 05:37 [place] % (Auto) 10.8 % 07/24/25 05:37 Eos % (Auto) 4.2 % 07/24/25 05:37 Baso % (Auto) 0.9 % 07/24/25 05:37 Neut # (Auto) 2.60 10^3/uL (1.8-7.7) 07/24/25 05:37 Lymph # (Auto) 1.2 10^3/uL (0.8-4.8) 07/24/25 05:37 [place] # (Auto) 0.5 10^3/uL (0.2-0.9) 07/24/25 05:37 Eos # (Auto) 0.2 10^3/uL (0.0-0.8) 07/24/25 05:37 Baso # (Auto) 0.0 10^3/uL (0.0-0.1) 07/24/25 05:37 Nucleated RBC % (auto) 0 % 07/24/25 05:37 Nucleated RBCs # 0.0 /100WBC 07/24/25 05:37 Sodium 142 mmol/L (136-145) 07/24/25 05:37 Potassium 4.7 mmol/L (3.5-5.1) 07/24/25 05:37 Chloride 106 mmol/L (98-107) 07/24/25 05:37 Carbon Dioxide 26 mmol/L (22-29) 07/24/25 05:37 Anion Gap 14.7 (5-19) 07/24/25 05:37 BUN 18 mg/dL (8-23) 07/24/25 05:37 Creatinine 0.9 mg/dL (0.7-1.2) 07/24/25 05:37 GFR Calculation Not Reportable 07/24/25 05:37 Glucose 98 mg/dL (65-115) 07/24/25 05:37 Estimat Average Glucose 111 07/23/25 11:24 Hemoglobin A1c 5.5 % (4.0-6.0) 07/23/25 11:24 Calculated Osmolality 296 mOsm/kg (285-295) H 07/24/25 05:37 Calcium 8.8 mg/dL (8.5-10.5) 07/24/25 05:37 Total Bilirubin 0.4 mg/dL (0.15-1.2) 07/24/25 05:37 AST 13 U/L (0-40) 07/24/25 05:37 ALT 7 U/L (0-41) 07/24/25 05:37 Alkaline Phosphatase 59 U/L (40-130) 07/24/25 05:37 Troponin T Baseline < 6 ng/L (0-15) 07/23/25 11:24 Troponin T 120 Minute < 6.0 ng/L (0-15) 07/23/25 13:17 Delta Troponin T 0 ABS# (0-10) 07/23/25 13:17 Troponin T Hi Sens 6Hr < 6.0 ng/L (0-15) 07/23/25 17:26 Troponin T Hi Sens 6Hr Delta 0 ng/L (0-12) 07/23/25 17:26 NT-Pro-B Natriuret Pep 39 pg/mL (0-450) 07/23/25 13:17 Total Protein 6.2 g/dL (6.6-8.7) L 07/24/25 05:37 Albumin 3.8 g/dL (3.5-5.2) 07/24/25 05:37 Globulin 2.4 g/dL (1.3-4.6) 07/24/25 05:37 Triglycerides 166 mg/dL (0-150) H 07/23/25 11:24 Cholesterol 259 mg/dL (0-200) H 07/23/25 11:24 LDL Cholesterol, Calc 178 mg/dL (50-129) H 07/23/25 11:24 HDL Cholesterol 48 mg/dL (60-100) L 07/23/25 11:24 LDL/HDL Ratio 3.71 RATIO (0.00-3.22) H 07/23/25 11:24 Cholesterol/HDL Ratio 5.40 mg/dL (1.0-5.00) H 07/23/25 11:24 TSH 1.91 uIU/mL (0.27-4.20) 07/23/25 11:24 Urine Color Yellow (Yellow) 07/23/25 19:45 Urine Appearance Clear (CLEAR) 07/23/25 19:45 Urine pH 7.0 (5-7) 07/23/25 19:45 Ur Specific [place] 1.009 (1.005-1.030) 07/23/25 19:45 Urine Protein Negative (Negative) 07/23/25 19:45 Urine Glucose (UA) Negative (Normal) 07/23/25 19:45 Urine Ketones Negative (Negative) 07/23/25 19:45 Urine Blood Negative (Negative) 07/23/25 19:45 Urine Nitrate Negative (Negative) 07/23/25 19:45 Urine Bilirubin Negative (Negative) 07/23/25 19:45 Urine Urobilinogen 0.2 mg/dL (Negative) 07/23/25 19:45 Ur Leukocyte Esterase Negative (Negative) 07/23/25 19:45 Urine RBC 0-2 /hpf (0-2) 07/23/25 19:45 Urine WBC 0-5 /hpf (0-5) 07/23/25 19:45 Ur Squamous Epith Cells 0-5 /hpf (0-5) 07/23/25 19:45 Amorphous Sediment Not Reportable 07/23/25 19:45 Urine Bacteria None seen /hpf (NONE) 07/23/25 19:45 Hyaline Casts 0-4 /lpf H 07/23/25 19:45 Vitals Last Vital Signs Temp 97.4 F L 07/24/25 12:00 Pulse 63 07/24/25 12:00 Resp 19 H 07/24/25 12:00 BP 117/72 07/24/25 12:00 Pulse Ox 99 07/24/25 12:00 O2 Del Method Room Air 07/24/25 12:00 Discharge Plan Discharge Patient Disposition: Home Condition: Stable Prescriptions: New atorvastatin 40 mg Tablet 40 mg PO BEDTIME 30 Days Qty: 30 0RF nitroglycerin 0.4 mg Tablet, Sublingual 0.4 mg sublingual Q5M PRN (Reason: Chest Pain) 30 Days Qty: 30 0RF Continued aspirin [Griffin Low Dose Aspirin] 81 mg Tablet,Delayed Release (Dr/Ec) 81 mg PO DAILY calcium carbonate 500 mg calcium (1,250 mg) Tablet 500 mg PO DAILY magnesium 250 mg Tablet 250 mg PO DAILY metoprolol tartrate 25 mg tablet 12.5 mg PO BID cholecalciferol (vitamin D3) [Vitamin D3] 50 mcg (2,000 unit) Capsule 50 mcg PO DAILY Discharge Order = DC NOW: Discharge Order (Routine); Ordered 07/24/25 Ordered By: Nelson Forrest Referrals: Dipak Duron MD [Physician, Cardiology] - 7-10 days Referral Note: If you have not heard by Sunday afternoon on when you need to see 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 Adalberto Quinones MD [Primary Care Provider, Family Practice] - 1 week Referral Note: Please call your primary doctor if you have not heard from them on Sunday. Discharge Diet: Cardiac Discharge Activity: Resume usual activity Patient Instructions: Nitroglycerin (By mouth), Atorvastatin (By mouth), Noncardiac Chest Pain (DC), Chest Pain Stoplight, Opioid Safety, Patient Portal & Grace Instructions Activity Restrictions/Additional Instructions: -if any recurrent chest pain go to emergency room -follow up with cardiology Stand Alone Forms: At Home Dressing Change Discharge Attestations Time Spent in Discharge Care*: greater than 30 min Quality Metrics Clinical Quality Measures [ No reported AMI, CVA or VTE this stay] Coding Level of Care Code 67311 Total time (in minutes) for Discharge: 45 Diagnoses Chest pain R07.9
[2025-07-24 16:00] VITALS: BP 142/74; PULSE 67; RESP 23; TEMP 36.4; O2SAT 100
== END 2025-07-24 17:31 | disposition home or self-care (01) ==
LOC: ER 12:38 → CSU 13:58
PROVIDERS: Family Medicine; Admitting Provider Family Medicine; Emergency Provider Emergency Medicine; PCP Family Medicine; Visit Provider Family Medicine
DX: R07.9 Chest pain, unspecified (principal); I25.10 Atherosclerotic heart disease of native coronary artery without angina pectoris; Z95.5 Presence of coronary angioplasty implant and graft; Z79.82 Long term (current) use of aspirin; I10 Essential (primary) hypertension
CPT/HCPCS: 36415; 71045; 78452; 80053; 80061; 81001; 83036; 83880; 84443; 84484; 85025; 93005; 93017; 93306; 94664; 96372; 96374; 96375; 97165; 99285; A9500; G0378; J1650; J2470; J2785; J9999

== ENCOUNTER → 2025-08-24 13:46 | Outpatient (BNVA) | payer MEDICARE, SELFPAY | PROVIDERS: PCP Family Medicine; Visit Provider Internal Medicine Cardiovascular Disease | DX: I25.10 Atherosclerotic heart disease of native coronary artery without angina pectoris (principal); I10 Essential (primary) hypertension; E78.5 Hyperlipidemia, unspecified; Z51.89 Encounter for other specified aftercare; Z95.5 Presence of coronary angioplasty implant and graft | CPT/HCPCS: 99204 ==